=== PATIENT | male | born 1985 | race Two or more races ===

== ENCOUNTER 2017-04-23 21:49 | Emergency (ER) | payer SELFPAY ==
[~2017-04-23] VITALS: Ht 182.9 cm; Wt 88.5 kg
[2017-04-23 22:12] VITALS: BP 123/64
== END 2017-04-24 02:43 | disposition left against medical advice (07) ==
LOC: EDSEX 21:55 → ER 21:55
DX: R55 Syncope and collapse (principal); Z53.21 Procedure and treatment not carried out due to patient leaving prior to being seen by health care provider